=== PATIENT | female | born 1945 | race Caucasian/White ===

== ENCOUNTER 2017-10-08 19:07 | Emergency (ER) | payer OTHER ==
[2017-10-08] MEDS ORDERED: LIDOCAINE/PRILOCAINE 1 EACH CRTUBE TP ONE ×2 (19:33→19:45)
--- NOTE | 2017-10-08 19:50 | EDPHY ---
HPI/HX/ROS/PE/MDM Narrative: CHIEF COMPLAINT: Nausea, vomiting HISTORY OF PRESENT ILLNESS: The patient is a 72 y/o female with a history of all widespread metastatic breast cancer who recently started daily oral chemotherapy complaining of 4 days of nausea and vomiting. She has had 2.5 months of abdominal pain. Five days ago, she had 2 days of diarrhea up to 11 times a day. Roughly 4 days ago, she developed nausea and vomiting. She is unable to keep medicine, water, or food down. She denies hematemesis, bloody stool, fever, or other associated symptoms. She denies recent cough, cold, or other illness. She has a history of peripheral edema but does not note any changes. She has a history of pleural effusion but does not note any changes. No fever, chills, chest pain, shortness of breath, palpitations, urinary complaints, headache, lightheadedness. REVIEW OF SYSTEMS: Aside from elements discussed in the HPI, a comprehensive 10-point review of systems was reviewed and is negative. 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 Alert, oriented x3. HEENT: Atraumatic. Eyes: No icterus, no injection. Mouth: Dry mucous membranes. No erythema or lesions. Neck: supple with no adenopathy. LUNGS: Clear to auscultation bilaterally, no wheezes, rhonchi or rales. CARDIAC: Regular rate and rhythm, no rubs, murmurs or gallops. ABDOMEN: Soft, nontender, slightly distended, bowel sounds normal. BACK: No CVA tenderness. EXTREMITIES: No trauma. Lymphedema is present in the lower extremities bilaterally, right slightly greater than left. Lymphedema is present in bilateral hands. Range of motion is normal throughout. NEURO: Alert and oriented, grossly nonfocal. SKIN: Warm and dry, no rash. PSYCHIATRIC: Normal mentation, no agitation. ED Course: The patient presents with nausea, vomiting, and diarrhea. She is unable to keep her medication, including oral chemotherapy, water, or food down. She is concerned about dehydration. She further reports abdominal pain for the last 2.5 months. Believed to be related to possible metastasis of breast cancer. Plan for CBC, basic metabolic panel, liver function, lipase, urinalysis, and 1L NS fluid. Patient does have a port which she requests that we use. Given her significant peripheral edema this seems a reasonable request. Patient mL applied to the port site. Initial accessing of the port allowed IV to be placed but no blood was able to be drawn. 9:00 p.m.: Patient is receiving IV fluids. She is taking p.o. Fluids without difficulty and declined Zofran. Patient laboratory evaluation is concerning for a white blood cell count of 1.01 with absolute neutrophils of 0.71. She has an H&H of 8.6/ 23. She has not had a fever. On re-examination the patient reports that she is feeling better, her headache has improved, she is no longer having vomiting. I discussed her course with Dr. Cohen from [facility]. They are happy to see the patient tomorrow around 830 in the morning for most likely a Neupogen shot as well as re-examination. Patient will not return to her meditation retreat, which is in the [facility], until after she has been seen at [facility]. She was discharged with a prepack of Zofran use as needed after receiving a 2nd L of normal saline. She will follow up as directed. MDM: Differential diagnosis of the patient's nausea and vomiting was considered including but not limited to chemotherapy associated nausea vomiting, gastroenteritis, intraabdominal processes including appendicitis, pancreatitis, bowel obstruction and medication side effect. - Data Points Laboratory Results: Laboratory Results 10/08/17 21:25 10/08/17 21:25 10/08/17 10/08/17 21:25 21:25 WBC 1.01 10^3/uL L 10^3/uL (3.80-9.50) RBC 2.28 10^6/uL L 10^6/uL (4.18-5.33) Hgb 8.4 g/dL L g/dL (12.6-16.3) Hct 23.9 % L % (38.0-47.0) MCV 104.8 fL H fL (81.5-99.8) MCH 36.8 pg H pg (27.9-34.1) MCHC 35.1 g/dL g/dL (32.4-36.7) RDW 14.1 % % (11.5-15.2) Plt Count 247 10^3/uL 10^3/uL (150-400) MPV 9.3 fL fL (8.7-11.7) Neut % (Auto) 70.2 % % (39.3-74.2) Lymph % (Auto) 13.9 % L % (15.0-45.0) [place] % (Auto) 13.9 % H % (4.5-13.0) Eos % (Auto) 1.0 % % (0.6-7.6) Baso % (Auto) 1.0 % % (0.3-1.7) Nucleat RBC Rel Count 0.0 % % (0.0-0.2) Absolute Neuts (auto) 0.71 10^3/uL L 10^3/uL (1.70-6.50) Absolute Lymphs (auto) 0.14 10^3/uL L 10^3/uL (1.00-3.00) Absolute Monos (auto) 0.14 10^3/uL L 10^3/uL (0.30-0.80) Absolute Eos (auto) 0.01 10^3/uL L 10^3/uL (0.03-0.40) Absolute Basos (auto) 0.01 10^3/uL L 10^3/uL (0.02-0.10) Absolute Nucleated RBC 0.00 10^3/uL 10^3/uL (0-0.01) Immature Gran % 0.0 % % (0.0-1.1) Immature Gran # 0.00 10^3/uL 10^3/uL (0.00-0.10) RBC/WBC/PLT Morphology TNP Platelet Estimate TNP Sodium 130 mEq/L L mEq/L (135-145) Potassium 3.4 mEq/L mEq/L (3.3-5.0) Chloride 96 mEq/L L mEq/L (97-110) Carbon Dioxide 26 mEq/l mEq/l (22-31) Anion Gap 8 mEq/L mEq/L (8-16) BUN 21 mg/dL mg/dL (7-23) Creatinine 1.0 mg/dL mg/dL (0.6-1.0) Estimated GFR 55 Glucose 98 mg/dL mg/dL (70-100) Calcium 7.2 mg/dL L mg/dL (8.5-10.4) Total Bilirubin 0.4 mg/dL mg/dL (0.1-1.4) Conjugated Bilirubin 0.1 mg/dL mg/dL (0.0-0.5) Unconjugated Bilirubin 0.3 mg/dL mg/dL (0.0-1.1) AST 27 IU/L IU/L (14-46) ALT 31 IU/L IU/L (9-52) Alkaline Phosphatase 44 IU/L IU/L (38-126) Total Protein 4.6 g/dL L g/dL (6.3-8.2) Albumin 2.6 g/dL L g/dL (3.5-5.0) Lipase 12 IU/L L IU/L (23-300) Medications Given: Discontinued Medications Sodium Chloride (Ns) 1,000 mls @ 0 mls/hr IV EDNOW ONE; Wide Open PRN Reason: Protocol Stop: 10/08/17 20:08 Last Admin: 10/08/17 20:47 Dose: 1,000 mls Lidocaine/Prilocaine (Emla Cream) 1 anjali TP EDNOW ONE Stop: 10/08/17 19:46 Last Admin: 10/08/17 19:46 Dose: 1 anjali Ondansetron HCl (Zofran) 4 mg IVP EDNOW ONE Stop: 10/08/17 21:15 Last Admin: 10/08/17 21:37 Dose: Not Given General Time Seen by Provider: 10/08/17 19:37 Initial Vital Signs: Initial Vital Signs Temperature (C) 37.1 C 10/08/17 19:13 Heart Rate 88 10/08/17 19:13 Respiratory Rate 16 10/08/17 19:13 Blood Pressure 90/53 L 10/08/17 19:13 O2 Sat (%) 96 10/08/17 19:13 O2 Delivery Mode Room Air Allergies/Adverse Reactions: No Known Allergies Allergy (Unverified 01/09/16 15:46) Home Medications: Medication Instructions Recorded Herbals/Supplements -Info Only 1 ea PO DAILY 01/09/16 Lansoprazole [Prevacid] 15 mg PO DAILY 01/09/16 MAGNESIUM [Magnesium Oxide 200 mg] 1 tab PO DAILY 01/09/16 NYSTATIN 5 ml PO QID 01/09/16 Baking Soda Mouthwash 1 tsp PO QID PRN 01/10/16 Aspirin EC [Aspirin EC 325 mg (*)] 325 mg PO DAILY #0 tab 01/11/16 Atorvastatin Calcium [Lipitor 40 40 mg PO DAILY #30 tab 01/11/16 mg (*)] Ixmpra 10/08/17 Xeloda 10/08/17 Departure - Departure Disposition: Home, Routine, Self-Care Clinical Impression: Nausea & vomiting Qualifiers: Vomiting type: unspecified Vomiting Intractability: non-intractable Qualified Code(s): R11.2 - Nausea with vomiting, unspecified Neutropenia Qualifiers: Neutropenia type: secondary to cancer chemotherapy Qualified Code(s): D70.1 - Agranulocytosis secondary to cancer chemotherapy; T45.1X5A - Adverse effect of antineoplastic and immunosuppressive drugs, initial encounter; T45.1X5A - Adverse effect of antineoplastic and immunosuppressive drugs, initial encounter Condition: Good Instructions: Neutropenia (ED), Chemo Induced Nausea and Vomiting (ED) Additional Instructions: Your course has been discussed with Dr. Alpesh Cohen, from [facility]. They would like to see you tomorrow. Please call their office at 8:30 a.m.. They can evaluate you, and presumably provide a Neupogen shot prior to your returned to the [facility]. Return to the emergency department if you develops fever, recurrent vomiting and diarrhea not well treated with your Compazine medication and Zofran, significant abdominal pain, lightheadedness, dizziness, or other concerns. Referrals: Tamar Lockett MD [Primary Care Provider] - As per Instructions Report Scribed for: Makayla Franklin Report Scribed by: Marlin Henry Date of Report: 10/08/17 Time of Report: 21:04 Physician Review and Approval Statement: Portions of this note were transcribed by a biomedical engineering supervisor. I personally performed a history, physical exam, medical decision making, and confirmed accuracy of information the transcribed note.
[2017-10-08] MEDS ORDERED: NS 1,000 ML IV ONE ×2 (20:07→22:20)
[2017-10-08] MEDS ORDERED: ONDANSETRON 4 MG/2 ML VIAL IVP ONE (21:14)
[2017-10-08 21:38] LABS: PLATELET COUNT 247 10^3/uL (150-400)
[2017-10-08] MEDS ORDERED: ONDANSETRON 4MG PREPACK#2 BTL TAKEHOME ONE (22:26)
[2017-10-09 00:05] VITALS: BP 131/94
== END 2017-10-09 00:03 | disposition home or self-care (01) ==
DX: R11.2 Nausea with vomiting, unspecified (principal); E86.9 Volume depletion, unspecified; D70.1 Agranulocytosis secondary to cancer chemotherapy; T45.1X5A Adverse effect of antineoplastic and immunosuppressive drugs, initial encounter; C79.81 Secondary malignant neoplasm of breast

== ENCOUNTER 2018-02-14 16:48 | Inpatient (IN) | payer OTHER ==
--- NOTE | 2018-02-14 17:22 | EDPHY ---
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 5 weeks ago, she was in [facility], when she developed pain in the left flank region and decreased urinary output. When she returned, she had ultrasounds showing hydronephrosis of both kidneys, worse on left. At that time, she stopped having urinary output , prompting a nephrostomy tube to be placed urgently. Her pain improved after the tube placement and 24 hours post surgery, she returned to normal urination, and was not using the nephrostomy to. Yesterday morning, her pain increased and her urinary output decreased. At that point, she reattached the nephrostomy bag she had bloody urinary output. Over the past 24 hours, her pain has worsened and she has remained urinating from the bag only. She denies any other associated symptoms. She is not currently on chemotherapy and is only using supplements for cancer treatment. No fever, chills, chest pain, shortness of breath, palpitations, vomiting, diarrhea, headache, lightheadedness. REVIEW OF SYSTEMS: A comprehensive 10 system review of systems is otherwise negative aside from elements mentioned in the history of present illness and medical decision making PAST MEDICAL HISTORY: Breast cancer with metastases to lungs, liver, spine, pelvis, and thighs, pleural drains, nephrostomy tubes SOCIAL HISTORY: at bedside, recently returned from [facility], lives in [place], retired VITAL SIGNS: Reviewed by me GENERAL: Tired and ill appearing female with anasarca, in no respiratory distress. HEENT: Atraumatic. Eyes: Edema of the eyelids. No icterus, no injection. Mouth: moist mucous membranes. No erythema or lesions. Neck: supple with no adenopathy. LUNGS: Rales to 2/3s of the lungs bilaterally. No wheezes or rhonchi. Diminished breath sounds at both bases, worse on the right CARDIAC: Regular rate and rhythm, no rubs, murmurs or gallops. ABDOMEN: [address] without bags attached. Abdomen swollen and distended. Edema of the abdominal wall. Abdomen is firm, nondistended, nontender. BACK: Nephrostomy tube on left flank with with tenderness and swelling to the left flank and left lateral abdominal wall. Sacral edema. EXTREMITIES: 3 to 4 + edema to thighs. No trauma. Range of motion is normal throughout. NEURO: Alert and oriented, grossly nonfocal. SKIN: Warm and dry, no rash. PSYCHIATRIC: Normal mentation, no agitation. ED Course: Study: X-ray of the chest Indication: Diminished breath sounds, increased left flank swelling Results: X-ray scan of the chest was obtained. The results of the study are: Mass in left chest cavity of unknown origin The study was read by the radiologist, Dr. Aponte. I viewed the images myself on the PACS system. Study: CT of the chest and abdomen Indication: Abnormal x-ray, decreased urinary output, increased flank pain Results: CT scan of the chest and abdomen was obtained. The results of the study are: Fluid in the pleural cavity resulting in mass, anasarca, findings consistent with progressing cancer The study was read by the radiologist, Dr. Aponte. I viewed the images myself on the PACS system. The patient presents with increased pain and decreased urinary output for past 24-48 hours. History of a nephrostomy tube placed 1.5 weeks ago. Her recent labs baseline values: creatinine 1, potassium 4.5 to 5, hemoglobin 9-10, and hematocrit 30s. She has edema to her legs up to thigh, eyelids, left flanks, and sacrum. Plan for CBC, basic metabolic panel, liver function, urinalysis, and chest x-ray. 8:45 PM: Liver function labs are elevated and urine is concerning for infection. Chest x-ray showed an fluid in the right fissure causing bulging of the right fissure. CT scan of the abdomen was obtained to evaluate patient's elevated liver function tests, recently diagnosed liver metastases, as well as the lateral left abdominal wall/flank mass. The increased edema in the left flank appears to be anasarca, no indication it is metastases in the abdominal wall. Other findings consistent with increasing number and size of known metastases. I feel she will benefit from admission for pain management and treatment of new elevation of liver enzymes. Patient admitted to the hospitalist service, Dr. Aguilera. MDM: Differential diagnoses for the patient's symptom complex was considered including but not limited to urinary tract infection, urosepsis, hydronephrosis , increasing metastatic disease, ureteral obstruction, pleural effusions. - Data Points Imaging Results: Imaging Impressions Chest X-Ray 02/14/18 17:30 Impression: 1. Bilateral pleural effusions, left greater than right with bilateral chest tubes. 2. Bilateral lower lobe pneumonia versus atelectasis, left greater than right. Abdomen CT 02/14/18 18:52 Impression: 1. Diffuse osseous metastasis. 2. Diffuse hepatic metastasis. 3. Bilateral pleural effusions, loculated on the right and larger on the left. 4. Constipation without bowel obstruction. 5. Left internal and external ureteral stent and nephrostomy in satisfactory position. Suggestion of mild right hydronephrosis. Findings and recommendations discussed with emergency department physician, Makayla Franklin MD at 2030 hours on February 14, 2018. Final report concurs with initial preliminary interpretation. Imaging: Discussed imaging studies w/ call or contact centre team leader Radiologist, I viewed and interpreted images myself Laboratory Results: Laboratory Results 02/14/18 18:00 02/14/18 18:00 02/14/18 02/14/18 02/14/18 19:00 18:00 18:00 WBC RBC Hgb Hct MCV MCH MCHC RDW Plt Count MPV Neut % (Auto) Lymph % (Auto) [place] % (Auto) Eos % (Auto) Baso % (Auto) Nucleat RBC Rel Count Absolute Neuts (auto) Absolute Lymphs (auto) Absolute Monos (auto) Absolute Eos (auto) Absolute Basos (auto) Absolute Nucleated RBC Immature Gran % Immature Gran # RBC/WBC/PLT Morphology Platelet Estimate PT 13.3 SEC SEC (12.0-15.0) INR 0.99 (0.83-1.16) APTT 28.6 SEC SEC (23.0-38.0) VBG Lactic Acid 0.7 mmol/L mmol/L (0.7-2.1) Sodium Potassium Chloride Carbon Dioxide Anion Gap BUN Creatinine Estimated GFR Glucose Calcium Total Bilirubin 0.3 mg/dL mg/dL (0.1-1.4) Conjugated Bilirubin Unconjugated Bilirubin AST ALT Alkaline Phosphatase Total Protein Albumin Urine Color Urine Appearance Urine pH Ur Specific [place] Urine Protein Urine Ketones Urine Blood Urine Nitrate Urine Bilirubin Urine Urobilinogen Ur Leukocyte Esterase Urine RBC Urine WBC Ur Epithelial Cells Urine Bacteria Urine Mucus Urine Glucose 02/14/18 02/14/18 02/14/18 18:00 18:00 18:00 WBC 5.64 10^3/uL 10^3/uL (3.80-9.50) RBC 3.14 10^6/uL L 10^6/uL (4.18-5.33) Hgb 11.0 g/dL L g/dL (12.6-16.3) Hct 33.5 % L % (38.0-47.0) MCV 106.7 fL H fL (81.5-99.8) MCH 35.0 pg H pg (27.9-34.1) MCHC 32.8 g/dL g/dL (32.4-36.7) RDW 14.7 % % (11.5-15.2) Plt Count 317 10^3/uL 10^3/uL (150-400) MPV 8.4 fL L fL (8.7-11.7) Neut % (Auto) 89.8 % H % (39.3-74.2) Lymph % (Auto) 4.3 % L % (15.0-45.0) [place] % (Auto) 4.4 % L % (4.5-13.0) Eos % (Auto) 0.4 % L % (0.6-7.6) Baso % (Auto) 0.4 % % (0.3-1.7) Nucleat RBC Rel Count 0.0 % % (0.0-0.2) Absolute Neuts (auto) 5.06 10^3/uL 10^3/uL (1.70-6.50) Absolute Lymphs (auto) 0.24 10^3/uL L 10^3/uL (1.00-3.00) Absolute Monos (auto) 0.25 10^3/uL L 10^3/uL (0.30-0.80) Absolute Eos (auto) 0.02 10^3/uL L 10^3/uL (0.03-0.40) Absolute Basos (auto) 0.02 10^3/uL 10^3/uL (0.02-0.10) Absolute Nucleated RBC 0.00 10^3/uL 10^3/uL (0-0.01) Immature Gran % 0.7 % % (0.0-1.1) Immature Gran # 0.04 10^3/uL 10^3/uL (0.00-0.10) RBC/WBC/PLT Morphology TNP Platelet Estimate TNP PT INR APTT VBG Lactic Acid Sodium 136 mEq/L mEq/L (135-145) Potassium 4.8 mEq/L mEq/L (3.3-5.0) Chloride 104 mEq/L mEq/L (97-110) Carbon Dioxide 27 mEq/l mEq/l (22-31) Anion Gap 5 mEq/L L mEq/L (6-14) BUN 35 mg/dL H mg/dL (7-23) Creatinine 0.7 mg/dL mg/dL (0.6-1.0) Estimated GFR > 60 Glucose 90 mg/dL mg/dL (70-100) Calcium 7.9 mg/dL L mg/dL (8.5-10.4) Total Bilirubin 0.4 mg/dL mg/dL (0.1-1.4) Conjugated Bilirubin 0.3 mg/dL mg/dL (0.0-0.5) Unconjugated Bilirubin 0.1 mg/dL mg/dL (0.0-1.1) AST 290 IU/L H IU/L (14-46) ALT 252 IU/L H IU/L (9-52) Alkaline Phosphatase 732 IU/L H IU/L (38-126) Total Protein 4.8 g/dL L g/dL (6.3-8.2) Albumin 2.4 g/dL L g/dL (3.5-5.0) Urine Color CARRIE Urine Appearance HAZY Urine pH 5.0 (5.0-7.5) Ur Specific [place] 1.032 H (1.002-1.030) Urine Protein 2+ H (NEGATIVE) Urine Ketones TRACE H (NEGATIVE) Urine Blood 2+ H (NEGATIVE) Urine Nitrate NEGATIVE (NEGATIVE) Urine Bilirubin NEGATIVE (NEGATIVE) Urine Urobilinogen NEGATIVE EU EU (0.2-1.0) Ur Leukocyte Esterase 2+ H (NEGATIVE) Urine RBC 50-182 /hpf H /hpf (0-3) Urine WBC 50-182 /hpf H /hpf (0-3) Ur Epithelial Cells TRACE /lpf /lpf (NONE-1+) Urine Bacteria 1+ /hpf H /hpf (NONE SEEN) Urine Mucus 4+ /lpf H /lpf (NONE-1+) Urine Glucose NEGATIVE (NEGATIVE) Medications Given: Morphine Sulfate (Morphine) 1 - 2 mg IVP Q1HR PRN PRN Reason: Pain, Severe Unable to Take PO Stop: 02/24/18 21:41 Last Admin: 02/14/18 21:56 Dose: 2 mg Discontinued Medications Sodium Chloride (Ns) 500 mls @ 1,000 mls/hr IV EDNOW ONE PRN Reason: Protocol Stop: 02/14/18 19:21 Last Admin: 02/14/18 19:12 Dose: 500 mls Ceftriaxone Sodium/Dextrose (Rocephin 1 Gm (Premix)) 50 mls @ 100 mls/hr IV EDNOW ONE PRN Reason: Protocol Stop: 02/14/18 21:00 Last Admin: 02/14/18 20:49 Dose: 50 mls Morphine Sulfate (Morphine) 4 mg IVP EDNOW ONE Stop: 02/14/18 18:07 Last Admin: 02/14/18 18:08 Dose: 4 mg Morphine Sulfate (Roxanol Oral Solution) 30 mg PO EDNOW ONE Stop: 02/14/18 19:16 Last Admin: 02/14/18 19:12 Dose: 30 mg General Time Seen by Provider: 02/14/18 17:09 Initial Vital Signs: Initial Vital Signs Temperature (C) 36.6 C 02/14/18 16:57 Heart Rate 71 02/14/18 16:57 Respiratory Rate 16 02/14/18 16:57 Blood Pressure 161/79 H 02/14/18 16:57 O2 Sat (%) 99 02/14/18 16:57 O2 Delivery Mode Nasal Cannula O2 (L/minute) 6 Allergies/Adverse Reactions: No Known Allergies Allergy (Unverified 02/14/18 16:55) Home Medications: Medication Instructions Recorded Aspirin EC [Aspirin EC 325 mg (*)] 325 mg PO HS 02/14/18 Herbals/Supplements -Info Only 1 ea PO DAILY 02/14/18 Saline Eye Drops 1 drop EACHEYE DAILY 02/14/18 morphINE SR [MS Contin/Oramorph SR 30 mg PO BID 02/14/18 30 mg (*)] morphINE [Roxanol 10 mg/0.5 ml 30 mg PO Q3 PRN 02/14/18 oral soln (*)] Departure - Departure Disposition: [facility] Inpatient Acute Clinical Impression: Flank pain, Anasarca, Metastatic cancer Urinary tract infection Qualifiers: Urinary tract infection type: site unspecified Hematuria presence: with hematuria Qualified Code(s): N39.0 - Urinary tract infection, site not specified Condition: Fair Report Scribed for: Makayla Franklin Report Scribed by: Marlin Henry Date of Report: 02/14/18 Time of Report: 17:46 Physician Review and Approval Statement: Portions of this note were transcribed by a medical scheduler. I personally performed a history, physical exam, medical decision making, and confirmed accuracy of information the transcribed note.
[2018-02-14] MEDS ORDERED: LET GEL TOPICAL 1 EA SYR TP ONE (17:28)
[2018-02-14 18:23] LABS: PLATELET COUNT 317 10^3/uL (150-400)
[2018-02-14] MEDS ORDERED: NS 500 ML IV ONE (18:52)
[2018-02-14 18:53] LABS: INR 0.99 (0.83-1.16); PROTIME(PATIENT) 13.3 SEC (12.0-15.0)
[2018-02-14] MEDS ORDERED: morphINE 0.4 MG/ML SCN ORAL SYR PO ONE (18:59)
[2018-02-14] MEDS ORDERED: IOPAMIDOL (ISOVUE-300) 100 ML BTL ONE (19:11)
[2018-02-14] MEDS ORDERED: morphINE 10 MG/0.5 ML UDSYR PO ONE (19:15)
[2018-02-14] MEDS ORDERED: ONDANSETRON DISINTEGRATING 4 MG TAB PO PRN (21:42)
[2018-02-14] MEDS ORDERED: oxyCODONE IR 5 MG TAB PO PRN (21:42)
[2018-02-14] MEDS ORDERED: ACETAMINOPHEN 325 MG TAB PO PRN (21:42)
[2018-02-14] MEDS ORDERED: LORazepam 2 MG/ML INJ IVP PRN (21:42)
--- NOTE | 2018-02-14 21:42 | PDGENHP ---
History and Physical - Chief Complaint left flank pain - History of Present Illness 72yo F with diffusely metastatic breast cancer presents with worsening left flank pain associated with a decrease in urine output. She had a left nephrostomy tube and ureteral stent placed 02/03 for ureteral obstruction due to her cancer. These interventions had relieved her left flank pain and she had been urinating normally until three days ago when she noticed an increase in left flank pain. She hasn't made any urine since yesterday except when she hooked up her nephrostomy tube to a bag today she did notice some bloody output. She denies fevers or chills. She has been extremely lethargic and sleeping most of the day. She also has been having some increase in her overall pain levels. No change in breathing or increase in O2 needs (typically wears 5L) . She has noticed a decrease in the drainage from her right pleural tube. She typically drains her bilateral pleural drains every 2 days. In the ED, evaluation was remarkable for abnormal LFTs and an infected- appearing UA (although this was taken from nephrostomy tube). She was given a dose of ceftriaxone and is being admitted for further evaluation and management. Case discussed with ED physician Makayla Franklin. History Information - Allergies/Home Medication List Allergies/Adverse Reactions: No Known Allergies Allergy (Unverified 02/14/18 16:55) Home Medications: Aspirin EC [Aspirin EC 325 mg (*)] 325 mg PO HS 02/14/18 [Last Taken 02/13/18] Herbals/Supplements -Info Only 1 ea PO DAILY 02/14/18 [Last Taken Unknown] Saline Eye Drops 1 drop EACHEYE DAILY 02/14/18 [Last Taken Unknown] morphINE SR [MS Contin/Oramorph SR 30 mg (*)] 30 mg PO BID 02/14/18 [Last Taken 02/11/18] morphINE [Roxanol 10 mg/0.5 ml oral soln (*)] 30 mg PO Q3 PRN 02/14/18 [Last Taken 02/14/18] I have personally reviewed and updated: family history, medical history, social history, surgical history - Past Medical History Additional medical history: metastatic inflammatory breast cancer (diagnosed 2015, previously on chemotherapy but stopped 10/2017 and now only taking supplements), CVA s/p tpa 12/2015 with no residual deficits, HLD - Surgical History Additional surgical history: bilateral lumpectomy - Family History Positive for: non-pertinent - Social History Smoking Status: Never smoked Alcohol Use: None Drug Use: None Additional social history: Lives with here in [place], retired Review of Systems Review of Systems: ROS: 10pt was reviewed & negative except for what was stated in HPI & below Physical Exam Physical Exam: Temp Pulse Resp BP Pulse Ox 36.6 C 71 16 90/55 L 100 02/14/18 16:57 02/14/18 20:30 02/14/18 20:30 02/14/18 20:30 02/14/18 20:30 Constitutional: uncomfortable, other (sleeping under blankets and her jacket) Eyes: PERRL, anicteric sclera, EOMI Ears, Nose, Mouth, Throat: dry mucous membranes Cardiovascular: regular rate and rhythym, no murmur, rub, or gallop, edema (3+ pitting edema to thighs) Respiratory: no respiratory distress, reduced air movement (no air movement at bilateral bases), other (bilateral pleural drains), No expiratory wheeze, No rhonchi Gastrointestinal: normoactive bowel sounds, soft, non-tender abdomen, no palpable masses Genitourinary: other (left nephrostomy tube in place, mild ttp over left flank) Skin: warm, normal color, no rashes or abrasions, no fluctuance, no induration, No mottled Musculoskeletal: full muscle strength, no muscle tenderness, normal joint ROM, no joint effusions Neurologic: AAOx3 Psychiatric: interacting appropriately, not anxious, not encephalopathic, thought process linear Lab Data & Imaging Review 02/14/18 18:00 02/14/18 18:00 WBC 5.64 10^3/uL (3.80-9.50) 02/14/18 18:00 RBC 3.14 10^6/uL (4.18-5.33) L 02/14/18 18:00 Hgb 11.0 g/dL (12.6-16.3) L 02/14/18 18:00 Hct 33.5 % (38.0-47.0) L 02/14/18 18:00 MCV 106.7 fL (81.5-99.8) H 02/14/18 18:00 MCH 35.0 pg (27.9-34.1) H 02/14/18 18:00 MCHC 32.8 g/dL (32.4-36.7) 02/14/18 18:00 RDW 14.7 % (11.5-15.2) 02/14/18 18:00 Plt Count 317 10^3/uL (150-400) 02/14/18 18:00 MPV 8.4 fL (8.7-11.7) L 02/14/18 18:00 Neut % (Auto) 89.8 % (39.3-74.2) H 02/14/18 18:00 Lymph % (Auto) 4.3 % (15.0-45.0) L 02/14/18 18:00 [place] % (Auto) 4.4 % (4.5-13.0) L 02/14/18 18:00 Eos % (Auto) 0.4 % (0.6-7.6) L 02/14/18 18:00 Baso % (Auto) 0.4 % (0.3-1.7) 02/14/18 18:00 Nucleat RBC Rel Count 0.0 % (0.0-0.2) 02/14/18 18:00 Absolute Neuts (auto) 5.06 10^3/uL (1.70-6.50) 02/14/18 18:00 Absolute Lymphs (auto) 0.24 10^3/uL (1.00-3.00) L 02/14/18 18:00 Absolute Monos (auto) 0.25 10^3/uL (0.30-0.80) L 02/14/18 18:00 Absolute Eos (auto) 0.02 10^3/uL (0.03-0.40) L 02/14/18 18:00 Absolute Basos (auto) 0.02 10^3/uL (0.02-0.10) 02/14/18 18:00 Absolute Nucleated RBC 0.00 10^3/uL (0-0.01) 02/14/18 18:00 Immature Gran % 0.7 % (0.0-1.1) 02/14/18 18:00 Immature Gran # 0.04 10^3/uL (0.00-0.10) 02/14/18 18:00 RBC/WBC/PLT Morphology TNP 02/14/18 18:00 Platelet Estimate TNP 02/14/18 18:00 PT 13.3 SEC (12.0-15.0) 02/14/18 18:00 INR 0.99 (0.83-1.16) 02/14/18 18:00 APTT 28.6 SEC (23.0-38.0) 02/14/18 18:00 VBG Lactic Acid 0.7 mmol/L (0.7-2.1) 02/14/18 19:00 Sodium 136 mEq/L (135-145) 02/14/18 18:00 Potassium 4.8 mEq/L (3.3-5.0) 02/14/18 18:00 Chloride 104 mEq/L (97-110) 02/14/18 18:00 Carbon Dioxide 27 mEq/l (22-31) 02/14/18 18:00 Anion Gap 5 mEq/L (6-14) L 02/14/18 18:00 BUN 35 mg/dL (7-23) H 02/14/18 18:00 Creatinine 0.7 mg/dL (0.6-1.0) 02/14/18 18:00 Estimated GFR > 60 02/14/18 18:00 Glucose 90 mg/dL (70-100) 02/14/18 18:00 Calcium 7.9 mg/dL (8.5-10.4) L 02/14/18 18:00 Total Bilirubin 0.3 mg/dL (0.1-1.4) 02/14/18 18:00 Conjugated Bilirubin 0.3 mg/dL (0.0-0.5) 02/14/18 18:00 Unconjugated Bilirubin 0.1 mg/dL (0.0-1.1) 02/14/18 18:00 AST 290 IU/L (14-46) H 02/14/18 18:00 ALT 252 IU/L (9-52) H 02/14/18 18:00 Alkaline Phosphatase 732 IU/L (38-126) H 02/14/18 18:00 Total Protein 4.8 g/dL (6.3-8.2) L 02/14/18 18:00 Albumin 2.4 g/dL (3.5-5.0) L 02/14/18 18:00 Urine Color CARRIE 02/14/18 18:00 Urine Appearance HAZY 02/14/18 18:00 Urine pH 5.0 (5.0-7.5) 02/14/18 18:00 Ur Specific [place] 1.032 (1.002-1.030) H 02/14/18 18:00 Urine Protein 2+ (NEGATIVE) H 02/14/18 18:00 Urine Ketones TRACE (NEGATIVE) H 02/14/18 18:00 Urine Blood 2+ (NEGATIVE) H 02/14/18 18:00 Urine Nitrate NEGATIVE (NEGATIVE) 02/14/18 18:00 Urine Bilirubin NEGATIVE (NEGATIVE) 02/14/18 18:00 Urine Urobilinogen NEGATIVE EU (0.2-1.0) 02/14/18 18:00 Ur Leukocyte Esterase 2+ (NEGATIVE) H 02/14/18 18:00 Urine RBC 50-182 /hpf (0-3) H 02/14/18 18:00 Urine WBC 50-182 /hpf (0-3) H 02/14/18 18:00 Ur Epithelial Cells TRACE /lpf (NONE-1+) 02/14/18 18:00 Urine Bacteria 1+ /hpf (NONE SEEN) H 02/14/18 18:00 Urine Mucus 4+ /lpf (NONE-1+) H 02/14/18 18:00 Urine Glucose NEGATIVE (NEGATIVE) 02/14/18 18:00 Visualized and Interpreted Chest x-ray results: Yes Interpretation: CXR: bilateral pleural effusions (L>R) with bilateral chest tubes. Abdomen CT: diffuse bony and hepatic mets, bilateral pleural effusions ( loculated on right and larger on left), constipation without obstruction, left internal and external ureteral stent and nephrostomy tube in satisfactory position, suggestion of mild right hydronephrosis Assessment & Plan Assessment: 72yo F with diffusely metastatic breast cancer presents with worsening left flank pain associated with a decrease in urine output found to be dehydrated with a potential UTI. Plan: 1. UTI/pyelonephritis: UA infected but from neph tube. She is not septic. No ureteral obstruction on imaging and creatinine ok. - CTX 1g q24h, follow up urine culture, consider ureteral stent/perc neph tube exchange 2. Dehydration: As evidenced by elevated BUN, poor PO. - Gentle IVF, monitor and replete electrolytes 3. Abnormal LFTs: Due to liver mets. No biliary obstruction on CT. - Recheck in AM, no indication for biliary stenting 4. Bilateral pleural effusions: Malignant. Has pleural drains. 5. Anasarca: Poor nutritional status, low albumin. Monitor with IVF. 6. Metastatic inflammatory breast cancer: Mets to lungs, pleura, liver, bone. Followed by Dr Calvo at [facility] and Dr Weber. She has not been on chemo since 2017. She seems to be declining and has progression of disease on imaging. - Recommend discussing palliative/hospice care this admission 7. Cancer pain: Continue home roxanol and MS contin with IV morphine available for breakthrough. VTE ppx: LMWH Code: full per discussion with patient and Dispo: Admit under observation
[2018-02-14] MEDS ORDERED: MELATONIN 3 MG TAB PO PRN (22:34)
[2018-02-14] MEDS: morphINE 10 MG/0.5 ML UDSYR PO PRN (22:59)
[2018-02-14] MEDS: NS 1,000 ML IV SCH (23:31)
[2018-02-14] MEDS: morphINE SR 30 MG TAB PO SCH (23:31)
[2018-02-15] MEDS: morphINE 10 MG/0.5 ML UDSYR PO PRN (03:20)
[2018-02-15] MEDS: HYDROCODONE/APAP 5/325 TAB PO PRN ×2 (05:00→18:33)
[2018-02-15 05:25] LABS: PLATELET COUNT 327 10^3/uL (150-400)
[2018-02-15] MEDS: morphINE SR 30 MG TAB PO SCH ×2 (09:28→20:51)
[2018-02-15] MEDS: SALINE EYE EACHEYE SCH (09:28)
[2018-02-15] MEDS: NS 1,000 ML IV SCH ×2 (09:36→18:36)
[2018-02-15] MEDS: ENOXAPARIN 40 MG/0.4 ML SYR SC SCH (10:33)
--- NOTE | 2018-02-15 12:19 | WOCRNPDOC ---
WOCRN Advanced Assessment Note - Skin Integrity Problem, Advanced Assess Upper Back Pressure Injury Dressing Type: Allevyn Life Dressing Description: Clean/Dry, Intact Wound Bed Constitution: Scab, Healed Site Measurement - Head-to-Toe Length X Width X Depth (cm): 1x0.5xscab Skin Integrity Problem Comment: Scab was removed mechanically and a healed pink wound bed was revealed underneath. Unknown wound etiology. Wound care will sign off. May cover with 4x4 Allevyn life for protection and padding.
[2018-02-15] MEDS: ASPIRIN 81 MG CHEWABLE TAB PO SCH (14:15)
--- NOTE | 2018-02-15 14:39 | HOSPPROG ---
Hospitalist Progress Note Assessment/Plan: 72yo F with diffusely metastatic breast cancer presents with worsening left flank pain associated with a decrease in urine output found to be dehydrated with a potential UTI. Plan: 1. UTI/pyelonephritis: UA infected but from neph tube. She is not septic. No ureteral obstruction on imaging and creatinine ok. - CTX 1g q24h, follow up urine culture, consider ureteral stent/perc neph tube exchange 2. Dehydration: As evidenced by elevated BUN, poor PO. - Gentle IVF, monitor and replete electrolytes 3. Abnormal LFTs: Due to liver mets. No biliary obstruction on CT. - Continue to monitor 4. Bilateral pleural effusions: Malignant. Has pleural drains. 5. Anasarca: Poor nutritional status, low albumin. Monitor with IVF. 6. Metastatic inflammatory breast cancer: Mets to lungs, pleura, liver, bone. Followed by Dr Calvo at [facility] and Dr Weber. She has not been on chemo since 2017. She seems to be declining and has progression of disease on imaging. - Palliative care consult ordered 7. Cancer pain: Continue home roxanol and MS contin with IV morphine available for breakthrough. VTE ppx: LMWH Code: full per discussion with patient and Dispo: Pending clinical course Subjective: Patient reports fatigue this morning Objective: Vital Signs Temp Pulse Resp BP Pulse Ox 36.3 C 72 15 111/66 99 02/15/18 12:17 02/15/18 12:17 02/15/18 12:17 02/15/18 12:17 02/15/18 12:17 Laboratory Results 02/15/18 05:11 02/15/18 05:11 02/14/18 02/15/18 02/16/18 05:59 05:59 05:59 Intake Total 1292 Output Total 250 175 Balance 1042 -175 PT 13.3 SEC (12.0-15.0) 02/14/18 18:00 INR 0.99 (0.83-1.16) 02/14/18 18:00 - Physical Exam Constitutional: chronically ill appearing Eyes: PERRL Ears, Nose, Mouth, Throat: moist mucous membranes Cardiovascular: regular rate and rhythym Respiratory: no respiratory distress, reduced air movement Gastrointestinal: soft, non-tender abdomen Skin: warm Neurologic: AAOx3 Psychiatric: interacting appropriately ICD10 Worksheet Patient Problems: Problems Problem Status Onset Anasarca Acute Flank pain Acute Metastatic cancer Acute Urinary tract infection Acute Acute ischemic stroke Acute
--- NOTE | 2018-02-15 15:39 | PDMN ---
Medical Necessity Medical necessity: MCG M300 UTI: 72 yo w/ hx breast ca w/ mets presents w/ L flank pain and decreased UO. L nephrostomy tube and ureteral stent placed 02/03 for obstruction due to ca. Dx this admit w/ UTI, dehydration. Initially OBS but change to IP status as pt will cont with IV antibx for infection and IVF for hypotension. IV opioids for pain management. BC pending. PT/OT to see pt Palliative care consult. Hx metastatic breast ca, mets to lung/liver/bone. Change to IP status 02/15/18 @1434 per MD order
[2018-02-15] MEDS: LIDOCAINE 4%/MENTHOL 1% PATCH TD SCH (22:54)
[2018-02-16] MEDS: HYDROCODONE/APAP 5/325 TAB PO PRN (00:12)
[2018-02-16] MEDS: morphINE 10 MG/0.5 ML UDSYR PO PRN ×6 (01:04→21:07)
[2018-02-16 06:19] LABS: PLATELET COUNT 246 10^3/uL (150-400)
[2018-02-16] MEDS: ASPIRIN 81 MG CHEWABLE TAB PO SCH (08:19)
[2018-02-16] MEDS: morphINE SR 30 MG TAB PO SCH ×2 (08:19→21:07)
[2018-02-16] MEDS: ONDANSETRON 4 MG/2 ML VIAL IVP PRN (08:24)
[2018-02-16] MEDS: SALINE EYE EACHEYE SCH (08:28)
[2018-02-16] MEDS: LIDOCAINE 4%/MENTHOL 1% PATCH TD SCH (08:28)
[2018-02-16] MEDS ORDERED: ASPIRIN 81 MG CHEWABLE TAB PO SCH (09:00)
--- NOTE | 2018-02-16 10:58 | HOSPPROG ---
Hospitalist Progress Note Assessment/Plan: 72 yo F with diffusely metastatic breast cancer presents with worsening left flank pain associated with a decrease in urine output found to be dehydrated with UTI Plan: # UTI/pyelonephritis: She is not septic. No ureteral obstruction on imaging and creatinine ok. UCx growing enterococcus, likely not covered by ceftriaxone - change to IV ampicillin, await sensitivities - requested urology consult, discussed with Dr. Serrano, who recommends perc tube exchange and outpt f/u with [facility] for stent exchange - IR to exchange nephrostomy tube # Dehydration: poor oral intake - stop IVF's, she'll likely 3rd space this with low albumin - will give IV albumin x24 hrs - dietary consult # Abnormal LFTs: Due to liver mets. No biliary obstruction on CT. - Continue to monitor # AHRF 2/2 bilateral pleural effusions: Malignant. Has pleural drains. 5 LPM is her baseline O2 requirement # Anasarca: Poor nutritional status, low albumin. - check LE u/s to r/o DVT # Metastatic inflammatory breast cancer: Mets to lungs, pleura, liver, bone. Followed by Dr Calvo at [facility] and Dr Weber. She has not been on chemo since 2017. She seems to be declining and has progression of disease on imaging. She aims to get better with supplements and doesn't want any more chemo - oncology consult today - Pt has engaged with outpt hospice for support # Cancer pain: Continue home roxanol and MS contin with IV morphine available for breakthrough. VTE ppx: LMWH Code: full per discussion with patient and Dispo: cont inpt, pt has engaged with [facility]. palliative care to see today to further discuss goals of care and code status Subjective: Pt feels weak. Denies fevers/chills. Left flank pain a bit better. No N/V. tolerating po. says she doesn't want any more chemo. Objective: Vital Signs Temp Pulse Resp BP Pulse Ox 36.4 C 87 16 108/66 93 02/16/18 07:46 02/16/18 07:46 02/16/18 07:46 02/16/18 07:46 02/16/18 07:46 Laboratory Results 02/16/18 05:30 02/16/18 05:30 02/15/18 02/16/18 02/17/18 05:59 05:59 05:59 Intake Total 2326 Output Total 575 100 Balance 1751 -100 PT 13.3 SEC (12.0-15.0) 02/14/18 18:00 INR 0.99 (0.83-1.16) 02/14/18 18:00 - Physical Exam Constitutional: no apparent distress Eyes: PERRL Ears, Nose, Mouth, Throat: moist mucous membranes Cardiovascular: regular rate and rhythym Respiratory: no respiratory distress, reduced air movement, inspiratory crackles Gastrointestinal: normoactive bowel sounds, soft, non-tender abdomen Skin: warm Musculoskeletal: full muscle strength, other (anasarca) Neurologic: AAOx3 Psychiatric: interacting appropriately ICD10 Worksheet Patient Problems: Problems Problem Status Onset Anasarca Acute Flank pain Acute Metastatic cancer Acute Urinary tract infection Acute Acute ischemic stroke Acute
[2018-02-16] MEDS: PATCH REMOVAL 1 EA PATCH TD SCH (11:24)
[2018-02-16] MEDS: ENOXAPARIN 40 MG/0.4 ML SYR SC SCH (11:28)
[2018-02-16] MEDS ORDERED: FUROSEMIDE 40 MG/4 ML VIAL IVP ONE (12:31)
[2018-02-16] MEDS: AMPICILLIN SODIUM 1 GM in NS 50 ML IV SCH ×2 (13:02→18:49)
[2018-02-16] MEDS: ALBUMIN 25% 100 ML IV SCH ×3 (14:12→23:21)
--- NOTE | 2018-02-16 14:40 | ASMTCMCOM ---
CM Note CM Note Notes: Patient plan of care reviewed in interdisciplinary roubds. Her antibiotic will be changed. Her nephrostomy tube is to be exchanged. She has bilateral jer drains and has supplies to manage this. She is to have an ultrasound. Patient had pallliative meeting with [facility] and [facility]. She is current with [facility]. She is clear about her disease and moving forward. 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 CM to follow for needs. Plan: Home with [facility] and [facility]. Date Signed: 02/16/2018 02:40 PM Electronically Signed By:nAgelica Newton RN
--- NOTE | 2018-02-16 20:12 | PDCONSULT ---
Lab Associate Note: Patient is a 72-year-old female with a history of metastatic triple negative breast cancer who presents for evaluation of a decreased urinary output, anasarca and fatigue. Patient was recently admitted from 02/01/2018 to 02/04/2018 at the [facility]. She was admitted for left lower abdomen and left flank pain subsequently found to have left-sided hydronephrosis on imaging. She had a nephroureteral stent placed as well as ureteroplasty across a stricture on 02/03. She also had a nephrostomy tube placed at that time. Patient reports that her pain initially felt better however the last few days she had return of this left-sided discomfort as well as extreme fatigue for the last 3 days as well as worsening lower extremity edema. She also noticed a drop in her urinary output although the nephrostomy tube is draining appropriately. She presented to the emergency room on 02/14/2018, At that time she was found to have increased liver function tests. Her urinalysis showed pyuria and bacteriuria. CT scan at that time showed diffuse osseous metastatic disease, diffuse hepatic metastatic metastasis, as well as bilateral pleural effusions. The left internal/external ureteral stents and nephrostomy were felt to be in good position with some suggestion of right hydronephrosis that was mild which was similar to her admission in January. Her urinalysis ended up growing Enterococcus faecalis and she was admitted for urinary tract infection. Oncologic/treatment history (from [facility]): Diagnosis:3.5cm mass left breast, skin thickening on mammo, +2 concerning axillary nodes, U/S 3.5cm mass. Biopsy of breast [facility] IDC, mod grade, no lvi, ER negative, CA + (on repeat check) , HER2 negative, axillary LN biopsy + IDC extracapsular extension, ER negative CA positive, HER 2 negative Treatment History: -09/28/15 C1D1 neoadjuvant dose dense AC. 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 Still consider aggressive resection if good response to eribulin. -05/13/16 C1D1 eribulin with clinical progression after 2 cycles - skin metastasis on back -06/2016 port infection with staph caprae bacteremia - port removed and completing definitive course of daptomycin 07/09 last dose, surveillance cultures negative -06/2016 enrolled in comirb [id number] paclitaxel + [id number], delayed C1D8 and dose reduced due to myelosuppression, neupogen added, off progression new chest wall lesion -11/12/16 enrolled on comirb [id number] BMS ox-40 plus nivolumab q 4 week dosing -Caris testing of skin lesion by 09/2016 PTEN loss, MARY ANN, PD-L1 negative, p53 mutated -12/30 progression on ox-40 nivo chest wall and new liver mets, pleural thickening on imaging -01/2018 carbo/gem initiated carbo auc 2 gem 1000mg/m2 D1 D8 repeat q 21 days -04/20/17 enrolled in comirb [id number] and randomized to sacituzumab govitecan (ADC trop2). ~Off study 06/2017 for progression in skin on back. Last dose on 06/10/17 -06/2017 enrolled in comirb [id number] group 2 alisertib [id number], off study 08/26/17 progression -09/28/17 C1D1 ixempra xeloda (started xeloda a few days earlier)~- stopped in pt preference for alternative therapy Past medical history: Patient denies (CVA, HLD, cataract noted in the chart) Past surgical history: Patient denies any significant past surgical history. Social history: Patient is she denies any significant history of alcohol drugs or tobacco use Family history: Mother with breast cancer in her 40s Paternal grandmother with breast cancer in her 70s Review of systems: A complete 12 point review of systems is obtained and found to be negative unless indicated in the history of the present illness Physical examination: General: No acute distress nontoxic appearing female HEENT: Pupils equal round reactive to light no scleral icterus or conjunctival pallor is appreciated oral mucosa is moist without any evidence of oral pharyngeal lesions Neck: Supple Cardiovascular: Regular in rate and rhythm without rubs thrills gallops or murmurs, JVD is present Chest: Clear to auscultation in bilateral posterior lungs, decreased at the bases bilaterally, bilateral pleurex drains Abdomen: Soft, nontender, nondistended without organomegaly, left sided nephrostomy draining urine Extremities: Warm and well perfused 2+ dorsalis pedis and radial pulses bilaterally, pitting edema up to the sacrum and abdominal wall Skin, sclerodermatous tightening of the skin along the chest wall Neurologic: Alert and oriented x3 Allergies and medications reviewed in the electronic medical record Laboratory studies and imaging findings are as per the HPI Assessment and plan: Patient is a 72-year-old female with metastatic triple negative breast cancer who progressed on both conventional and experimental therapies admitted for of fatigue and anasarca found to have a urinary tract infection. #Metastatic Triple negative breast cancer Patient is progressed on both conventional and experimental therapy and presents this hospitalization with consequences of ongoing progression of disease. Patient isn't interested per se in conventional therapy and sounds like she tolerated her last conventional therapy poorly (xeloda, ixempra). In addition to her desire to avoid chemotherapy, she is also not a candidate for ongoing therapy. We discussed that while we can makes attempts to make her feel better and see and if she can respond to alternative therapies, her desire, I feel much of this hospitalization is related to progressive cancer and isn't reversible per se. I also don't see her returning to a relatively good quality of life she had before admission 02/01 at [facility]. I think palliative/hospice care is likely most appropriate at this time but think it's reasonable to try and treat her UTI (if present) and see if she improves enough to go home. Bronson Salamanca
[2018-02-17] MEDS: AMPICILLIN SODIUM 1 GM in NS 50 ML IV SCH ×4 (00:47→18:49)
[2018-02-17] MEDS: morphINE 10 MG/0.5 ML UDSYR PO PRN ×6 (00:49→21:45)
[2018-02-17 05:17] LABS: PLATELET COUNT 202 10^3/uL (150-400)
[2018-02-17] MEDS: ALBUMIN 25% 100 ML IV SCH (05:42)
[2018-02-17] MEDS: ENOXAPARIN 40 MG/0.4 ML SYR SC SCH (08:13)
[2018-02-17] MEDS: ASPIRIN 81 MG CHEWABLE TAB PO SCH (08:13)
[2018-02-17] MEDS: morphINE SR 30 MG TAB PO SCH ×2 (08:13→21:45)
[2018-02-17] MEDS: PATCH REMOVAL 1 EA PATCH TD SCH (08:56)
[2018-02-17] MEDS: SALINE EYE EACHEYE SCH (08:56)
--- NOTE | 2018-02-17 09:43 | SOAPPROG ---
SOAP Progress Note Assessment/Plan: Assessment and plan: Patient is a 72-year-old female with metastatic triple negative breast cancer who progressed on both conventional and experimental therapies admitted for fatigue and anasarca found to have a urinary tract infection. #Metastatic Triple negative breast cancer Patient is progressed on both conventional and experimental therapy and presents this hospitalization with consequences of ongoing progression of disease. Patient isn't interested per se in conventional therapy and sounds like she tolerated her last conventional therapy poorly (xeloda, ixempra). In addition to her desire to avoid chemotherapy, she is also not a candidate for ongoing therapy. We discussed that while we can makes attempts to make her feel better and see and if she can respond to alternative therapies, her desire, I feel much of this hospitalization is related to progressive cancer and isn't reversible per se. CT scan and LFT abnormalities concerning for beginnings of visceral crisis #Complicated UTI CT on admission with mild hydronephrosis on the right, left has nephrostomy tube. No abscess noted. Urine growing enterococcus faecalis. Presumably fatigue is related to infection. -agree with nephrostomy tube change -continue antibiotics #Anasarca Likely multifactorial from low albumin, adenopathy in the pelvis with lymphedema and CHF -agree with diuretics as intravascular volume up #Macrocytic anemia -will check reticulocyte count and eval peripheral blood smear Bronson Salamanca 02/17/18 09:43 02/17/18 09:48 02/17/18 09:53 Subjective: patient reports her fatigue has not improved. she also still has pain in left lower abdomen, not making urine. No fevers chills or sweats. Nephrostomy still with output, received diuretics. Does described PND Objective: Vital Signs Temp Pulse Resp BP Pulse Ox 36.6 C 79 16 108/65 96 02/17/18 07:29 02/17/18 07:29 02/17/18 07:29 02/17/18 07:29 02/17/18 07:29 Laboratory Results 02/17/18 05:00 02/17/18 05:00 02/16/18 02/17/18 02/18/18 05:59 05:59 05:59 Intake Total 2326 900 Output Total 575 1900 200 Balance 1751 -1000 -200 PT 13.3 SEC (12.0-15.0) 02/14/18 18:00 INR 0.99 (0.83-1.16) 02/14/18 18:00 Physical examination: General: No acute distress nontoxic appearing female HEENT: Pupils equal round reactive to light no scleral icterus or conjunctival pallor is appreciated oral mucosa is moist without any evidence of oral pharyngeal lesions Neck: Supple Cardiovascular: Regular in rate and rhythm without rubs thrills gallops or murmurs, JVD is present Abdomen: Soft, nontender, nondistended without organomegaly, left sided nephrostomy draining urine Extremities: Warm and well perfused 2+ dorsalis pedis and radial pulses bilaterally, pitting edema up to the sacrum and abdominal wall, L>R UE edema Neurologic: Alert and oriented x3 ICD10 Worksheet Patient Problems: Problems Problem Status Onset Anasarca Acute Flank pain Acute Metastatic cancer Acute Urinary tract infection Acute Acute ischemic stroke Acute
[2018-02-17] MEDS ORDERED: FUROSEMIDE 40 MG/4 ML VIAL IVP ONE (10:05)
--- NOTE | 2018-02-17 10:08 | HOSPPROG ---
Hospitalist Progress Note Assessment/Plan: 72 yo F with diffusely metastatic breast cancer presents with worsening left flank pain associated with a decrease in urine output found to be dehydrated with UTI Plan: # UTI/pyelonephritis: She is not septic. No ureteral obstruction on imaging and creatinine ok. UCx growing enterococcus, likely not covered by ceftriaxone - cont IV ampicillin - requested urology consult yest, discussed with Dr. Serrano, who recommends perc tube exchange and outpt f/u with [facility] for stent exchange - IR to exchange nephrostomy tube (pt refused yesterday), discussed with IR today who does not think this will be of benefit as tube will be chronically colonized / infected. ultimately procedure is deferred # Dehydration: poor oral intake - dietary consult # Abnormal LFTs: Due to liver mets. No biliary obstruction on CT. - Continue to monitor # AHRF 2/2 bilateral pleural effusions: Malignant. Has pleural drains. 5 LPM is her baseline O2 requirement # Anasarca: Poor nutritional status, low albumin. LE u/s neg for DVT. 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 Followed by Dr Calvo at [facility] and Dr Weber. She has not been on chemo since 2017. She seems to be declining and has progression of disease on imaging. She aims to get better with supplements and doesn't want any more chemo - oncology following, no further tx to offer - Pt has engaged with outpt hospice for support # Cancer pain: Continue home roxanol and MS contin with IV morphine available for breakthrough. VTE ppx: LMWH Code: full per discussion with patient and Dispo: cont inpt, pt has engaged with [facility]. palliative care to see today to further discuss goals of care and code status Subjective: Pt doing ok, feels weak. No fevers. No N/V. No abdominal or flank pain. Swelling in face a little better after IV lasix, still with significant anasarca. Objective: Vital Signs Temp Pulse Resp BP Pulse Ox 36.6 C 79 16 108/65 96 02/17/18 07:29 02/17/18 07:29 02/17/18 07:29 02/17/18 07:29 02/17/18 07:29 Laboratory Results 02/17/18 05:00 02/17/18 05:00 02/16/18 02/17/18 02/18/18 05:59 05:59 05:59 Intake Total 2326 900 Output Total 575 1900 200 Balance 1751 -1000 -200 PT 13.3 SEC (12.0-15.0) 02/14/18 18:00 INR 0.99 (0.83-1.16) 02/14/18 18:00 - Physical Exam Constitutional: no apparent distress Eyes: PERRL Ears, Nose, Mouth, Throat: moist mucous membranes Cardiovascular: regular rate and rhythym Respiratory: no respiratory distress, reduced air movement, inspiratory crackles , other (b/l pleural drains) Gastrointestinal: normoactive bowel sounds, soft, non-tender abdomen Skin: warm Musculoskeletal: generalized weakness, other (anasarca, 3+ pitting edema b/l LE' s and UE's) Neurologic: AAOx3 Psychiatric: interacting appropriately ICD10 Worksheet Patient Problems: Problems Problem Status Onset Anasarca Acute Flank pain Acute Metastatic cancer Acute Urinary tract infection Acute Acute ischemic stroke Acute
--- NOTE | 2018-02-17 16:11 | ASMTCMCOM ---
CM Note CM Note Notes: Chart reviewed. Patient will have HHC needs at this time. She and her met with Lynn Hodge from [facility] and they have elected to go with palliative care at this point in time as they feel it is more consistent with her goals of care. I have provided them with a list of HHC agencies to look at and they will inform me of their choice. CM to follow. referral to [facility] placed in allscripts. Plan: TBD but likely home with HHC and palliative care.when medically cleared for surgery. Date Signed: 02/17/2018 04:10 PM Electronically Signed By:Angelica Newton RN
[2018-02-18] MEDS: morphINE 10 MG/0.5 ML UDSYR PO PRN ×6 (00:55→22:27)
[2018-02-18] MEDS: AMPICILLIN SODIUM 1 GM in NS 50 ML IV SCH ×5 (00:55→23:59)
[2018-02-18] MEDS: LIDOCAINE 4%/MENTHOL 1% PATCH TD SCH ×2 (04:15→21:39)
[2018-02-18 06:10] LABS: PLATELET COUNT 288 10^3/uL (150-400)
[2018-02-18] MEDS: morphINE SR 30 MG TAB PO SCH ×2 (09:39→21:22)
[2018-02-18] MEDS: ASPIRIN 81 MG CHEWABLE TAB PO SCH (09:39)
[2018-02-18] MEDS: ENOXAPARIN 40 MG/0.4 ML SYR SC SCH (09:44)
[2018-02-18] MEDS: PATCH REMOVAL 1 EA PATCH TD SCH (09:45)
[2018-02-18] MEDS: SALINE EYE EACHEYE SCH (10:00)
--- NOTE | 2018-02-18 13:50 | ASMTCMCOM ---
CM Note CM Note Notes: Patient plan of care reviewed in rounds with Dr. Paz. The patient and her had been trying to work out services with [facility] but feel the structure to meet her potential needs are'nt in place. They are interested in speaking to [facility] regarding their services as they are encouraged by the possibility of inpatient hospice when she becomes too ill. Referral placed in allscripts. CM to follow. Plan: Likely to dc home with Hospice when medically ready to discharge. Date Signed: 02/18/2018 01:49 PM Electronically Signed By:Angelica Newton RN
--- NOTE | 2018-02-18 15:47 | ASMTCMCOM ---
CM Note CM Note Notes: Patient and her Dane met with [facility] [employer] and will likely elect to go home with their services. Also discussed securing additional help from a community provider such as [facility] or [facility]. She has associations with these providers. May be ready to discharge tomorrow. [facility] to return to address paper work and admission to service tomorrow. Plan: Home with [facility] Date Signed: 02/18/2018 03:46 PM Electronically Signed By:Angelica Newton RN
[2018-02-18] MEDS: ONDANSETRON 4 MG/2 ML VIAL IVP PRN (16:19)
[2018-02-18] MEDS ORDERED: FUROSEMIDE 40 MG/4 ML VIAL IVP ONE (16:29)
[2018-02-18] MEDS ORDERED: ALBUMIN 25% 100 ML IV ONE (16:29)
--- NOTE | 2018-02-18 16:36 | HOSPPROG ---
Hospitalist Progress Note Assessment/Plan: 72 yo F with diffusely metastatic breast cancer presents with worsening left flank pain associated with a decrease in urine output found to be dehydrated with UTI Plan: # UTI/pyelonephritis: She is not septic. No ureteral obstruction on imaging and creatinine ok. UCx growing enterococcus, likely not covered by ceftriaxone - cont IV ampicillin, change to oral Amox at discharge - considered nephrostomy tube exchange, though this is a complex nephro / ureteral tube and per after discussion with IR, will likely be recurrently colonized/infected thus IR was not in favor of exchanging tube as risk may outweigh benefit and it was ultimately deferred # Dehydration: poor oral intake - dietary consult # Abnormal LFTs: Due to liver mets. No biliary obstruction on CT. - Continue to monitor # AHRF 2/2 bilateral pleural effusions: Malignant. Has pleural drains. 5 LPM is her baseline O2 requirement # Anasarca: Poor nutritional status, low albumin. LE u/s neg for DVT. 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 Followed by Dr Calvo at [facility] and Dr Weber. She has not been on chemo since 2017. She is declining and has progression of disease on imaging. - oncology following, no further tx to offer - Pt has engaged with hospice # Cancer pain: Continue home roxanol and MS contin with IV morphine available for breakthrough. VTE ppx: LMWH Code: Full, see below Dispo: cont inpt Goals of care: additional 30 minutes spent at bedside with addressing end of life goals and code status. She is ready to change to DNR, but wants 's approval, he is getting there. Will revisit again tomorrow. She is not sure she wants to at home and may want the option to go to an inpt facility. [facility] will evaluate. Will likely dc tomorrow. Subjective: Pt doing ok, a little fatigued. No fevers/chills. Ambulating in halls with walker. She acknowledges she may not want to at home. Objective: Vital Signs Temp Pulse Resp BP Pulse Ox 36.8 C 80 16 96/66 L 97 02/18/18 11:41 02/18/18 11:41 02/18/18 11:41 02/18/18 11:41 02/18/18 11:41 Laboratory Results 02/18/18 05:15 02/18/18 06:00 02/17/18 02/18/18 02/19/18 05:59 05:59 05:59 Intake Total 900 815 Output Total 1900 4100 Balance -1000 -3285 PT 13.3 SEC (12.0-15.0) 02/14/18 18:00 INR 0.99 (0.83-1.16) 02/14/18 18:00 - Physical Exam Constitutional: no apparent distress, chronically ill appearing Eyes: PERRL Ears, Nose, Mouth, Throat: moist mucous membranes Cardiovascular: regular rate and rhythym Respiratory: no respiratory distress, reduced air movement, inspiratory crackles Gastrointestinal: normoactive bowel sounds, soft, non-tender abdomen Skin: warm Musculoskeletal: generalized weakness, other (anasarca) Neurologic: AAOx3 Psychiatric: interacting appropriately ICD10 Worksheet Patient Problems: Problems Problem Status Onset Anasarca Acute Flank pain Acute Metastatic cancer Acute Urinary tract infection Acute Acute ischemic stroke Acute
--- NOTE | 2018-02-18 17:59 | SOAPPROG ---
SOAP Progress Note Assessment/Plan: Assessment and plan: Patient is a 72-year-old female with metastatic triple negative breast cancer who progressed on both conventional and experimental therapies admitted for fatigue and anasarca found to have a urinary tract infection. #Metastatic Triple negative breast cancer Patient is progressed on both conventional and experimental therapy and presents this hospitalization with consequences of ongoing progression of disease. Patient isn't interested per se in conventional therapy and sounds like she tolerated her last conventional therapy poorly (xeloda, ixempra). In addition to her desire to avoid chemotherapy, she is also not a candidate for ongoing therapy. We discussed that while we can makes attempts to make her feel better and see and if she can respond to alternative therapies, her desire, I feel much of this hospitalization is related to progressive cancer and isn't reversible per se. CT scan and LFT abnormalities concerning for beginnings of visceral crisis #Complicated UTI CT on admission with mild hydronephrosis on the right, left has nephrostomy tube. No abscess noted. Urine growing enterococcus faecalis. Presumably fatigue is related to infection however isn't improving with treatment. -continue antibiotics #Anasarca Likely multifactorial from low albumin, adenopathy in the pelvis with lymphedema and CHF -agree with diuretics as intravascular volume up #Macrocytic anemia Inappropriately normal reticulocyte count, normal B12 and folate. May be anemia of inflammation with macrocytosis secondary to liver disease Bronson Florese 02/17/18 09:43 02/17/18 09:48 02/17/18 09:53 02/18/18 17:56 02/18/18 18:01 Subjective: patient reports ongoing fatigue that isn't improving with treatment of infection. no fevers or sweats. Swelling has improved somewhat. No other symptoms. Objective: Vital Signs Temp Pulse Resp BP Pulse Ox 36.8 C 77 16 117/77 100 02/18/18 16:38 02/18/18 16:38 02/18/18 16:38 02/18/18 16:38 02/18/18 16:38 Laboratory Results 02/18/18 05:15 02/18/18 06:00 02/17/18 02/18/18 02/19/18 05:59 05:59 05:59 Intake Total 900 815 Output Total 1900 4100 100 Balance -1000 -3285 -100 PT 13.3 SEC (12.0-15.0) 02/14/18 18:00 INR 0.99 (0.83-1.16) 02/14/18 18:00 Physical examination: General: No acute distress nontoxic appearing female HEENT: Pupils equal round reactive to light no scleral icterus or conjunctival pallor is appreciated oral mucosa is moist without any evidence of oral pharyngeal lesions Neck: Supple Cardiovascular: Regular in rate and rhythm without rubs thrills gallops or murmurs, JVD is present Abdomen: Soft, nontender, nondistended without organomegaly, left sided nephrostomy draining urine Extremities: Warm and well perfused 2+ dorsalis pedis and radial pulses bilaterally, pitting edema up to the sacrum and abdominal wall, L>R UE edema Neurologic: Alert and oriented x3 ICD10 Worksheet Patient Problems: Problems Problem Status Onset Anasarca Acute Flank pain Acute Metastatic cancer Acute Urinary tract infection Acute Acute ischemic stroke Acute
[2018-02-18] MEDS ORDERED: MAGNESIUM HYDROXIDE 30 ML UDCUP PO PRN (20:03)
[2018-02-19] MEDS: morphINE 10 MG/0.5 ML UDSYR PO PRN ×4 (01:34→12:09)
[2018-02-19] MEDS: AMPICILLIN SODIUM 1 GM in NS 50 ML IV SCH (06:01)
[2018-02-19 07:52] VITALS: BP 111/69
[2018-02-19] MEDS: morphINE SR 30 MG TAB PO SCH (07:59)
[2018-02-19] MEDS: ASPIRIN 81 MG CHEWABLE TAB PO SCH (07:59)
[2018-02-19] MEDS: ENOXAPARIN 40 MG/0.4 ML SYR SC SCH ×2 (08:00→10:46)
[2018-02-19] MEDS: SALINE EYE EACHEYE SCH (10:10)
[2018-02-19] MEDS: PATCH REMOVAL 1 EA PATCH TD SCH (10:11)
[2018-02-19] MEDS: HYDROCODONE/APAP 5/325 TAB PO PRN (10:45)
--- NOTE | 2018-02-19 12:49 | ASMTLACE ---
LACE Length of stay for Answers: 4-6 days current admission Acuity / Level of Answers: Yes Care: Did the patient have an inpatient admission? Comorbidities - select Answers: Any tumor (including all that apply lymphoma or leukemia) Cerebrovascular disease (CVA, TIA, aneurysms, vasc ular dementia) Mild liver or renal disease Opioid dependence / Chronic pain Other Notes: HLD # of Emergency department Answers: 1-2 visits in the last 6 months Score: 18 Date Signed: 02/19/2018 12:49 PM Electronically Signed By:Tamika Umana RN
--- NOTE | 2018-02-19 12:51 | ASMTDCNOTE ---
Case Management Discharge Discharge Order Complete? Answers: Yes Patient to Obtain Answers: Independently Medications Transportation Arranged Answers: Family/Friends Faxed Final Orders Answers: Yes Family Notified Answers: Yes Discharge Comments Notes: Patient discharging home with her . RX sent to their pharmacy. [facility] notified of d/c and will follow patient at home. Discharge summary sent to [facility] Date Signed: 02/19/2018 12:50 PM Electronically Signed By:Tamika Umana RN
--- NOTE | 2018-02-20 07:12 | GDS ---
DISCHARGE DIAGNOSES: 1. Metastatic breast cancer. 2. with metastases to the lung, pleura, liver, and bone. 3. Urinary tract infection in the setting of nephroureteral tube. 4. Chronic hypoxemic respiratory failure, on 5 L/minute at baseline due to bilateral malignant pleur al effusions with bilateral pleural drains. 5. Anasarca secondary to poor nutritional status and hypoalbuminemia. 6. Volume depletion. 7. Cancer pain. HEAVY REPAIRER: Dr. Bronson Salamanca, Oncology. IMAGING STUDIES/PROCEDURES: 1. Abdomen, pelvis CT February 14, 2018, showed diffuse osseous metastases, diffuse hepatic metastase s, bilateral pleural effusions, loculated on the right, larger on the left, constipation without ana l obstruction, and left internal and external ureteral stents and nephrostomy in appropriate position . 2. Renal ultrasound February 18, 2018, showed [id number] right hydronephrosis similar to the pr ior CT with a partially visualized left nephroureteral stent with decompression of the bladder, moder ate ascites. HISTORY: For details, please see the history and physical dated February 14, 2018. In brief, Ms. Serge farias is a 72-year-old female with a history of diffusely metastatic breast cancer who presented to [facility] emergency department with worsening left flank pain and decreased urine output. She recently under went left nephrostomy tube with ureteral stent placement on February 03 due to ureteral obstruction from her cancer. There was concern she developed infection in the setting of nephrostomy tube. She was admitted to the hospital for further management. HOSPITAL COURSE: Patient was admitted to the Med/Surg Cancer Care Unit. She was treated with IV cef triaxone. Her urine culture grew Enterococcus faecalis which was ampicillin sensitive. She received several days of IV ampicillin while here and was transitioned to oral amoxicillin at discharge. Uro logy was consulted but opted not to see the patient. We discussed proceeding with ureteral stent exc hange. This was ordered, but the interventional radiologist felt it was not necessary due to the chr onicity of colonization and infection with these tubes and foreign bodies. It was felt it was reason able to treat the possible infection without tube exchange. She received several days of albumin and Lasix due to her pronounced anasarca. She also has bilateral Raymon drains due to bilateral maligna nt effusions and was maintained on her baseline oxygen requirement of 5 L/minute. Oncology consult w as obtained, and she was informed that there are unfortunately no further treatment options available for her. She has been off chemotherapy since October of 2017. It has become clear that she is ra nuing to decline, and she has ongoing progression of disease on imaging. After several [id number] discussions, the patient ultimately opted to discharge home with hospice, and she [facility] because she is interested in the option of possibly transitioning to inpatient hospice when sh e nears the end-of-life phase as she is concerned her will not be able to handle her at home. No further interventions were pursued. Her pain was controlled, and she will be discharged h ome with oral Roxanol and further medication management per the hospice team. In addition, a MOLST f orm was completed to document her decision to become do not resuscitate. A copy was made [facility] the [facility] and the original was sent home with the patient. DISPOSITION: Patient is discharged [facility] with [facility] in stable condition. [facility] MEDICATIONS: [facility]. New medications on discharge include Tylenol 650 mg p.o. q.4 hours p.r.n.; amoxicillin 500 mg p.o. t.i.d., #21, no refi lls; Lasix 20 mg p.o. daily p.r.n., #30, no refills; Lidoderm patch. She will continue MS Contin 30 mg p.o. b.i.d. as well as Roxanol 5 to 30 mg p.o. q.1 hour p.r.n. Aspirin is discontinued. /[id number]/MODL
--- NOTE | 2018-02-21 10:13 | ASDISCHSUM ---
Discharge Information Plan Status:Hospice-Home Medically Cleared to Leave:02/18/2018 Discharge Date:02/19/2018 02:00 PM D/C Disposition:Hospice Home ADT D/C Disposition:Hospice Home Projected Discharge Date:02/16/2018 11:00 AM Transportation at D/C: Discharge Delay Reason: Follow-Up Date:02/16/2018 11:00 AM Discharge Slot: Final Diagnosis: Placement Information Referral Type:Palliative Care Referral ID:[id number] Provider Name: Address 1: Phone Number: Address 2: Fax Number: City: Selection Factors: State: Referral Type:*Hospice Referral ID:[id number] Provider Name:[facility] Address 1:[address] Address 2: City:[place] Selection Factors: State:[place] Patient Contact Information Contact Name:RISA Relationship: Address:[address] City:[place] Alternate Phone: State/Zip Code:[place] [address] Email: Financial Information Financial Class:Medicare Primary Plan Desc:MEDICARE INPATIENT Primary Plan Number:[id number] Secondary Plan Desc:RAO TOTAL CHOICE Secondary Plan Number:[id number] Assessment Information LACE LACE Length of stay for Answers: 4-6 days current admission Acuity / Level of Answers: Yes Care: Did the patient have an inpatient admission? Comorbidities - select Answers: Any tumor (including all that apply lymphoma or leukemia) Cerebrovascular disease (CVA, TIA, aneurysms, vasc ular dementia) Mild liver or renal disease Opioid dependence / Chronic pain Other Notes: HLD # of Emergency department Answers: 1-2 visits in the last 6 months Score: 18 Date Signed: 02/19/2018 12:49 PM Electronically Signed By:Tamika Umana RN [facility] Progress Note CM Note CM Note Notes: Patient plan of care reviewed in interdisciplinary roubds. Her antibiotic will be changed. Her nephrostomy tube is to be exchanged. She has bilateral jer drains and has supplies to manage this. She is to have an ultrasound. Patient had pallliative meeting with [facility] [place] and CM. She is current with [facility]. She is clear about her disease and moving forward. 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 CM to follow for needs. Plan: Home with [facility] and [facility]. Date Signed: 02/16/2018 02:40 PM Electronically Signed By:Angelica Newton RN [facility] Progress Note CM Note CM Note Notes: Chart reviewed. Patient will have HHC needs at this time. She and her met with Lynn Hodge from [facility] and they have elected to go with palliative care at this point in time as they feel it is more consistent with her goals of care. I have provided them with a list of [facility] agencies to look at and they will inform me of their choice. CM to follow. referral to [facility] placed in allscripts. Plan: TBD but likely home with [facility] and palliative care.when medically cleared for surgery. Date Signed: 02/17/2018 04:10 PM Electronically Signed By:Angelica Newton RN [facility] Progress Note CM Note CM Note Notes: Patient plan of care reviewed in rounds with Dr. Paz. The patient and her had been trying to work out services with [facility] but feel the structure to meet her potential needs are'nt in place. They are interested in speaking to [facility] regarding their services as they are encouraged by the possibility of inpatient hospice when she becomes too ill. Referral placed in allscripts. CM to follow. Plan: Likely to dc home with Hospice when medically ready to discharge. Date Signed: 02/18/2018 01:49 PM Electronically Signed By:Angelica Newton RN [facility] Progress Note CM Note CM Note Notes: Patient and her Dane met with [facility] and will likely elect to go home with their services. Also discussed securing additional help from a community provider such as [facility] or [facility]. She has associations with these providers. May be ready to discharge tomorrow. [place]el[place] to return to address paper work and admission to service tomorrow. Plan: Home with [facility] Date Signed: 02/18/2018 03:46 PM Electronically Signed By:Angelica Newton RN Case Management Discharge Plan Note Case Management Discharge Discharge Order Complete? Answers: Yes Patient to Obtain Answers: Independently Medications Transportation Arranged Answers: Family/Friends Faxed Final Orders Answers: Yes Family Notified Answers: Yes Discharge Comments Notes: Patient discharging home with her . RX sent to their pharmacy. [facility] notified of d/c and will follow patient at home. Discharge summary sent to [facility] Date Signed: 02/19/2018 12:50 PM Electronically Signed By:Tamika Umana RN Intervention Information Intervention Type:*MALIK-Signed Date of Service:02/15/2018 10:39 AM Patient Type:Observation Staff Member:Hilaria Macedo Hours: Discipline: Severity: Comment: Intervention Type:*IM-Signed Date of Service:02/19/2018 12:43 PM Patient Type:Inpatient Staff Member:Ciro Horowitz Hours: Discipline: Severity: Comment:
--- NOTE | 2018-02-23 10:34 | PQFORM ---
PHYSICIAN QUERY FORM Needs Your Response This query form is being sent to you to assure this patient record is coded properly. Please respond to the question below: CHEMICAL LAB SUPERVISOR QUESTION: Dear Dr. Paz, In reviewing this patients medical record, it is noted the patient had the diagnosis of "UTI in the setting of nephroureteral tube." Patient presented with decreased urinary output and kidney pain with a nephrostomy tube in place. The urinary sample was taken from the nephrostomy and grew Enterococcus faecalis. In the H&P it is noted "patient had a UA infected but from Nephrostomy tube." After study was the UTI due to the Nephrostomy tube? __X___ Yes No Clinically Undetermined Other more appropriate diagnosis (please specify) Thank you DAREK Carballo [facility]/Coding Dept. [phone] INSTRUCTIONS FOR RESPONSE: Answer question by clicking on the "Edit Document" button. Move cursor to area below the stars. When complete, hit "Save." Click on the "Sign" button, then click "Sign" again. Type in your PIN and hit "Enter." MTDD
== END 2018-02-19 14:00 | disposition hospice, home (50) | DRG 699 ==
LOC: F1N 22:19 → OBSVTOIN 02-15 14:39
PROVIDERS: ADMIT Internal Medicine; ATTEND Internal Medicine
DX: T83.512A Infection and inflammatory reaction due to nephrostomy catheter, initial encounter (principal); N39.0 Urinary tract infection, site not specified; C78.00 Secondary malignant neoplasm of unspecified lung; C78.2 Secondary malignant neoplasm of pleura; C79.51 Secondary malignant neoplasm of bone; C78.7 Secondary malignant neoplasm of liver and intrahepatic bile duct; J96.11 Chronic respiratory failure with hypoxia; J91.0 Malignant pleural effusion; C50.912 Malignant neoplasm of unspecified site of left female breast; E86.0 Dehydration; R60.1 Generalized edema; G89.3 Neoplasm related pain (acute) (chronic); B95.2 Enterococcus as the cause of diseases classified elsewhere; E78.5 Hyperlipidemia, unspecified; K59.00 Constipation, unspecified; Z66 Do not resuscitate; Z86.73 Personal history of transient ischemic attack (TIA), and cerebral infarction without residual deficits
CPT/HCPCS: 82607-90; 96374; 97110-GP; 97116-GP; 97162-GP; 97165-GO; 97535-GO; G0378; G8978-GP-CJ; G8979-GP-CI; G8987-GO-CK; G8988-GO-CI; G8989-GO-CJ; J0290; J0696; J1642; J1650; J1940; J2270; J2405; P9047; Q9967

== ENCOUNTER → 2018-02-26 | Outpatient (CLI) | payer OTHER | LOC: FIMAGING 14:00 | PROVIDERS: ATTEND Radiology Diagnostic Radiology | DX: J90 Pleural effusion, not elsewhere classified (principal); I51.7 Cardiomegaly; Z96.0 Presence of urogenital implants; Z01.818 Encounter for other preprocedural examination ==